=== PATIENT | female | born 1990 | race Caucasian/White ===

== ENCOUNTER 2017-09-10 22:50 | Emergency (ER) | payer OTHER ==
[2017-09-10 23:31] LABS: BASOPHILS % (AUTO) 0.5 %; EOSINOPHILS # (AUTO) 0.1 10^3/uL (0.0-0.7); EOSINOPHILS % (AUTO) 1.8 %; HGB - HEMOGLOBIN 13.4 g/dL (12.0-16.0); LYMPHOCYTES # (AUTO) 3.3 10^3/uL (1.5-3.5); LYMPHOCYTES % (AUTO) 39.3 %; MEAN CORPUSCULAR HEMOGLOBIN 30.8 pg (27.0-31.0); MEAN CORPUSCULAR HGB CONC 35.4 g/dL (32.0-36.0); MEAN CORPUSCULAR VOLUME 86.9 fL (81.0-99.0); MEAN PLATELET VOLUME 8.7 fL (7.9-10.8); MONOCYTES # (AUTO) 0.5 10^3/uL (0.0-1.0); MONOCYTES % (AUTO) 5.5 %; NEUTROPHILS # (AUTO) 4.5 10^3/uL (1.5-6.6); NEUTROPHILS % (AUTO) 52.9 %; PLT - PLATELET COUNT 196 10^3/uL (130-450); RED BLOOD COUNT 4.37 10^6/uL (4.20-5.40); WHITE BLOOD COUNT 8.4 x10^3/uL (4.8-10.8)
[2017-09-10 23:47] LABS: ALBUMIN 4.3 g/dL (3.2-5.5); ALBUMIN/GLOBULIN RATIO 1.4 (1.0-2.2); BILIRUBIN,TOTAL 0.7 mg/dL (0.2-1.0); CALCIUM 8.8 mg/dL (8.5-10.3); CREATININE 0.9 mg/dL (0.4-1.0); TOTAL PROTEIN 7.3 g/dL (6.7-8.2)
[2017-09-11 00:17] LABS: BILIRUBIN,URINE NEGATIVE (NEGATIVE); GLUCOSE, URINE (UA) NEGATIVE (NEGATIVE); KETONES,URINE (UA) NEGATIVE (NEGATIVE); LEUKOCYTE ESTERASE, URINE NEGATIVE (NEGATIVE); NITRITE,URINE NEGATIVE (NEGATIVE); OCCULT BLOOD,URINE MODERATE (NEGATIVE); PROTEIN,URINE NEGATIVE (NEGATIVE); UROBILINOGEN,URINE 0.2 (NORMAL) E.U./dL (NORMAL)
[2017-09-11 00:18] LABS: CLARITY,URINE CLEAR (CLEAR)
[2017-09-11 00:19] LABS: HCG UR QUAL NEGATIVE
[2017-09-11 00:26] LABS: SQUAMOUS EPITHELIAL CELL,UR MOD Squamous (<= Few)
[2017-09-11 00:27] LABS: BACTERIA,URINE Rare /HPF (None Seen)
--- NOTE | 2017-09-11 01:05 | ED Physician Documentation ---
PD HPI ABD PAIN - Stated complaint Stated Complaint: R FLANK PX - Chief complaint Chief Complaint: Abd Pain - History obtained from History obtained from: Patient - History of Present Illness Timing - onset: Today Timing - details: Gradual onset, Still present Quality: Aching Location: RLQ Radiation: Right flank Associated symptoms: No: Fever, Nausea, Vomiting, Hematemesis, Vaginal bleeding , Vaginal dc Similar symptoms before: Has not had sx before Recently seen: Not recently seen - Additional information Additional information: Patient is a 27 year old female with no significant past medical history who is presenting to the emergency department for right lower quadrant pain. Patient states that it has been going on throughout the day. She states that it is aching and constant. patient denies any fevers, chills, anorexia, nausea or vomiting. Patient states that recently over the last couple of months her periods have been irregular which is new for her. Review of Systems Constitutional: denies: Fever, Chills Eyes: denies: Decreased vision, Photophobia Ears: denies: Ear pain, Drainage/discharge Nose: reports: Reviewed and negative Throat: reports: Reviewed and negative Cardiac: denies: Chest pain / pressure, Palpitations Respiratory: denies: Dyspnea, Cough, Wheezing GI: reports: Abdominal Pain. denies: Nausea, Vomiting, Constipation, Diarrhea, Hematemesis : denies: Dysuria, Frequency, Hesitancy, Hematuria, Discharge, Vaginal bleeding Skin: denies: Rash, Lesions Neurologic: denies: Generalized weakness, Focal weakness Immunocompromised: denies: Immunocompromised PD PAST MEDICAL HISTORY - Past Surgical History Past Surgical History: No - Allergies Allergies/Adverse Reactions: Allergies Allergy/AdvReac Type Severity Reaction Status Date / Time No Known Drug Allergies Allergy Verified 09/10/17 22:57 - Social History Does the pt smoke?: No Smoking Status: Never smoker Does the pt drink ETOH?: No Does the pt have substance abuse?: No - Immunizations Immunizations are current?: Yes - POLST Patient has POLST: No PD ED PE NORMAL - Vitals Vital signs reviewed: Yes - General General: Alert and oriented X 3, No acute distress, Well developed/nourished - HEENT HEENT: Atraumatic, PERRL - Neck Neck: Supple, no meningeal sign, No JVD - Cardiac Cardiac: RRR, No murmur - Respiratory Respiratory: No respiratory distress - Abdomen Abdomen: Soft, Non distended - Derm Derm: Normal color, Warm and dry, No rash - Extremities Extremities: No deformity, Normal ROM s pain - Neuro Neuro: Alert and oriented X 3, No motor deficit, No sensory deficit, Normal speech - Psych Psych: Normal mood PD ED PE EXPANDED - Abdomen Abdomen: Tender to palpation (minimal discomfort with palpation of right lower quadrant ) Results - Vitals Vitals: Vital Signs - 24 hr 09/10/17 09/11/17 22:53 01:29 Temperature 36.8 C Heart Rate 65 65 Respiratory 16 16 Rate Blood Pressure 105/53 L 99/51 L O2 Saturation 99 99 Oxygen O2 Source Room air - Labs Labs: Laboratory Tests 09/10/17 09/10/17 09/11/17 23:22 23:22 00:00 WBC 8.4 RBC 4.37 Hgb 13.4 Hct 38.0 MCV 86.9 MCH 30.8 MCHC 35.4 RDW 13.0 Plt Count 196 MPV 8.7 Neut # 4.5 Lymph # 3.3 [place] # 0.5 Eos # 0.1 Baso # 0.0 Absolute Nucleated RBC 0.00 Nucleated RBC % 0.0 Sodium 137 Potassium 3.2 L Chloride 101 Carbon Dioxide 26 Anion Gap 10.0 BUN 12 Creatinine 0.9 Estimated GFR (MDRD) 76 L Glucose 78 Calcium 8.8 Total Bilirubin 0.7 AST 21 ALT 12 Alkaline Phosphatase 65 Total Protein 7.3 Albumin 4.3 Globulin 3.0 Albumin/Globulin Ratio 1.4 Lipase 19 L Urine Color YELLOW Urine Clarity CLEAR Urine pH 6.0 Ur Specific [place] 1.010 Urine Protein NEGATIVE Urine Glucose (UA) NEGATIVE Urine Ketones NEGATIVE Urine Occult Blood MODERATE H Urine Nitrite NEGATIVE Urine Bilirubin NEGATIVE Urine Urobilinogen 0.2 (NORMAL) Ur Leukocyte Esterase NEGATIVE Urine RBC 6-10 H Urine WBC 0-3 Ur Squamous Epith Cells MOD Squamous H Urine Bacteria Rare Ur Microscopic Review INDICATED Urine Culture Comments NOT INDICATED Urine HCG, Qual NEGATIVE PD MEDICAL DECISION MAKING - ED course Complexity details: reviewed old records, reviewed results, re-evaluated patient , considered differential, d/w patient ED course: Patient was seen and examined at bedside. patient was well appearing and in no distress. abdominal exam was benign. labs were drawn and urine was collected. Patient's diagnostics were within normal limits aside from some mild hematuria. patient was likely having another period and was having cramping. Patient was negative on the dunham score for appendicitis. patient was treated with toradol for pain. patient required no further work up and was stable for discharge with outpatient follow up. Departure - Departure Disposition: 01 Home, Self Care Clinical Impression: Dysfunctional uterine bleeding Condition: Good Instructions: ED Bleed Irregular Vaginal Follow-Up: Kerry Paniagua DO [Provider Admit Priv/Credential] - Within 3 Days Comments: Your diagnostics today were within normal limits. there is no acute abnormality on your blood work. You will need to follow up with your doctor for your irregular bleeding. You can take motrin or tylenol as needed for pain. You may return to the emergency department at any time for new, worsening or uncontrollable symptoms.
[2017-09-11] MEDS ORDERED: KETOROLAC 60 MG/2 ML VIAL IM STA (01:06)
[2017-09-11 01:29] VITALS: BP 99/51
== END 2017-09-11 01:32 | disposition home or self-care (01) ==
LOC: ED 22:50
DX: N93.8 Other specified abnormal uterine and vaginal bleeding (principal)
CPT/HCPCS: 36415; 80053; 81001; 81003; 81025; 83690; 85025; 87086; 96372; 99283